=== PATIENT | male | born 1965 | race African-American/Black ===

== ENCOUNTER 2018-03-15 05:16 | Emergency (ER) | payer MEDICAID, MEDICARE ==
[2018-03-15] MEDS ORDERED: Ondansetron HCl/PF 4 MG/2 ML Vial ONE ×2 (05:52→05:58)
[2018-03-15] MEDS ORDERED: Morphine 4 MG/ML VIAL ONE ×2 (05:52→05:58)
[2018-03-15 06:19] LABS: Hemoglobin 12.7 g/dL (14.0-18.0); Mean Corpuscular HGB CONC 30.5 g/dL (32.0-36.0); Mean Corpuscular Hemoglobin 23.7 pg (27.0-31.0); Mean Corpuscular Volume 77.8 fL (78.0-98.0); Mean Platelet Volume 8.5 fL (7.4-10.4); Platelet Count 162 thou/uL (130-400); Red Blood Cell (RBC) Count 5.38 mill/uL (4.70-6.10); White Blood Cell (WBC) Count 4.9 thou/uL (4.8-10.8)
[2018-03-15 06:20] LABS: Manual Diff?? YES
[2018-03-15 06:22] LABS: MDiff Complete? YES
[2018-03-15 06:23] LABS: Anisocytosis SLIGHT = 6-15 cells (100X) (0-5/hpf); Eosinophils 2 % (0-10); Lymphocytes 46 % (21-51); Monocytes 10 % (0-10); Neutrophil 42 % (42-75); PLT Morphology Comment Appears Adequate
[2018-03-15 06:24] LABS: CKMB 2.1 ng/mL (0-6.6); Troponin I Less than 0.010 ng/mL (< 0.028)
[2018-03-15 06:27] LABS: ALT (SGPT) 44 U/L (8-55); AST (SGOT) 72 U/L (5-34); Albumin 3.5 g/dL (3.5-5.0); Alkaline Phosphatase 76 U/L (40-150); Anion Gap 15 mmol/L (10-20); BUN (Urea Nitrogen) 10 mg/dL (8.4-25.7); Bilirubin, Total 0.3 mg/dL (0.2-1.2); CK (CPK) 128 U/L (30-200); Calc. Creatinine Clearance 0 mL/min (70-130); Calcium 8.9 mg/dL (7.8-10.44); Carbon Dioxide 21 mmol/L (22-29); Chloride 109 mmol/L (98-107); Estimated GFR-MDRD Greater than 90; Globulin 3.1 g/dL (2.4-3.5); Glucose 90 mg/dL (70-105); Lipase 63 U/L (8-78); Potassium 4.2 mmol/L (3.5-5.1); Protein, Total 6.6 g/dL (6.0-8.3); Sodium 141 mmol/L (136-145)
[2018-03-15 06:35] LABS: Magnesium 2.1 mg/dL (1.6-2.6)
[2018-03-15] MEDS ORDERED: Nitroglycerin 2% Ointment 1 INCH/1 GM Packet ONE (06:41)
[2018-03-15 07:33] LABS: Bilirubin Negative (Negative); Blood, Urine Negative (Negative); Clarity Clear (Clear); Glucose, Urine (Dipstick) Negative (Negative); Leukocyte Negative (Negative); Nitrite Negative (Negative); Protein, Urine (Dipstick) Negative (Neg-Trace); Urobilinogen 0.2 mg/dL (0.2-1.0); pH, Urine 6.5 (5.0-9.0)
--- NOTE | 2018-03-15 07:50 | RAD ---
PORTABLE CHEST: HISTORY: Chest pain. FINDINGS: Lung torres are clear. Heart and mediastinum unremarkable. IMPRESSION: Negative chest. POS: [facility]
[2018-03-15 08:02] LABS: Amphetamine Not Detected (NotDetected); Barbiturates Screen Not Detected (NotDetected); Benzodiazepine Screen Not Detected (NotDetected); Cocaine Metabolite Screen Detected (NotDetected); Medtox Control Line Valid? VALID (VALID); Methadone Not Detected (NotDetected); Methamphetamine Not Detected (NotDetected); Opiate Screen Not Detected (NotDetected); Oxycodone Screen Not Detected (NotDetected); Phencyclidine (PCP) Not Detected (NotDetected); THC/Cannabinoid Screen Detected (NotDetected); Tricyclic Screen Not Detected (NotDetected)
[2018-03-15] MEDS ORDERED: Sodium Chloride 0.9% 1,000 ML BAG ONE (12:09)
== END 2018-03-15 07:15 | disposition home or self-care (01) ==
LOC: MADERS 05:16
DX: R07.9 Chest pain, unspecified (principal); R00.1 Bradycardia, unspecified; K02.9 Dental caries, unspecified; K03.81 Cracked tooth; M54.5 Low back pain; F20.9 Schizophrenia, unspecified; F17.210 Nicotine dependence, cigarettes, uncomplicated
CPT/HCPCS: 71045; 80053; 80306; 81003; 82553; 83690; 83735; 84443; 84484; 85025; 93005; 94760; 96361; 96374; 96375; J2270; J2405; J7050

== ENCOUNTER 2018-04-09 14:23 | Outpatient (CLI) | payer MEDICARE, OTHER ==
--- NOTE | 2018-04-09 16:28 | RAD ---
THORACIC SPINE 2 VIEWS: Date: 04/09/18 HISTORY: Back pain. FINDINGS: Twelve thoracic-type vertebrae. Pedicles intact. Superior margin of T1 is not included on the frontal view and is predominantly obscured by the shoulders on the lateral view. Vertebral body heights and alignment are maintained. No acute fracture or dislocation. IMPRESSION: No evidence of thoracic compression fracture. POS: [facility]
== END 2018-04-09 14:24 | disposition home or self-care (01) ==
LOC: MADRAD 14:23
PROVIDERS: ATTEND Family Medicine
DX: M54.6 Pain in thoracic spine (principal)
CPT/HCPCS: 72072

== ENCOUNTER 2018-07-12 15:26 | Emergency (ER) | payer MEDICAID, MEDICARE, OTHER ==
[2018-07-12] MEDS ORDERED: Lorazepam 2 MG/ML VIAL ONE (15:55)
[2018-07-12] MEDS ORDERED: HYDROmorphone 0.5 MG/0.5 ML SYRINGE ONE (15:56)
[2018-07-12 16:15] LABS: Bilirubin Negative (Negative); Blood, Urine Negative (Negative); Clarity Clear (Clear); Glucose, Urine (Dipstick) Negative (Negative); Leukocyte Negative (Negative); Nitrite Negative (Negative); Protein, Urine (Dipstick) 30 mg/dL (Neg-Trace); pH, Urine 8.5 (5.0-9.0)
[2018-07-12 16:17] LABS: RBC/HPF 0-3 HPF (0-3); Squamous Epithelial None Seen HPF (0-3)
[2018-07-12 16:17] LABS: #Basophils 0.2 thou/uL (0.0-0.2); #Eosinphils 0.1 thou/uL (0.0-0.7); #Lymphocytes 1.9 thou/uL (1.20-3.40); #Monocytes 0.6 thou/uL (0.11-0.59); %Basophils 2.1 % (0.0-1.0); %Eosinophils 0.7 % (0.0-10.0); %Monocytes 8.2 % (0.0-10.0); Hemoglobin 14.2 g/dL (14.0-18.0); MDiff Complete? YES; Mean Corpuscular HGB CONC 30.3 g/dL (32.0-36.0); Mean Corpuscular Hemoglobin 23.5 pg (27.0-31.0); Mean Corpuscular Volume 77.4 fL (78.0-98.0); Mean Platelet Volume 8.7 fL (7.4-10.4); Microcytosis SLIGHT = 6-15 cells (100X) (0-5/hpf); Platelet Count 162 thou/uL (130-400); Platelet Morphology Comment Appears Adequate; RBC Distribution Width 13.8 % (11.5-14.5); Red Blood Cell (RBC) Count 6.05 mill/uL (4.70-6.10); White Blood Cell (WBC) Count 7.7 thou/uL (4.8-10.8)
[2018-07-12 16:18] LABS: Bacteria/HPF Rare-Few HPF (None Seen); Transitional Epithelial 0-3 HPF (0-3)
[2018-07-12 16:21] LABS: ALT (SGPT) 42 U/L (8-55); AST (SGOT) 49 U/L (5-34); Alkaline Phosphatase 72 U/L (40-150); Anion Gap 14 mmol/L (10-20); BUN (Urea Nitrogen) 10 mg/dL (8.4-25.7); Bilirubin, Total 0.7 mg/dL (0.2-1.2); Calc. Creatinine Clearance 0 mL/min (70-130); Calcium 9.2 mg/dL (7.8-10.44); Carbon Dioxide 23 mmol/L (22-29); Chloride 104 mmol/L (98-107); Estimated GFR-MDRD Greater than 90; Globulin 3.7 g/dL (2.4-3.5); Glucose 74 mg/dL (70-105); Potassium 3.8 mmol/L (3.5-5.1); Protein, Total 7.7 g/dL (6.0-8.3); Sodium 137 mmol/L (136-145)
[2018-07-12 16:50] LABS: Lipase 124 U/L (8-78)
== END 2018-07-12 18:33 | disposition home or self-care (01) ==
LOC: MADERS 15:26
DX: M54.16 Radiculopathy, lumbar region (principal); F17.210 Nicotine dependence, cigarettes, uncomplicated
CPT/HCPCS: 36415; 80053; 81003; 81015; 83605; 83690; 85025; 96374; 96375; J1170; J2060

== ENCOUNTER 2018-09-24 09:25 | Emergency (ER) | payer OTHER ==
--- NOTE | 2018-09-24 09:54 | RAD ---
XR Elbow Rt 4 View STANDARD: 09/24/2018 9:40 AM CLINICAL INDICATION: Injury, pain COMPARISON: None. FINDINGS: Fracture:No fracture. Arthropathy:None of significance. Incidental findings:None of significance. IMPRESSION: 1. No acute osseous abnormality.
[2018-09-24] MEDS ORDERED: Bacitracin Zinc 1 Packet ONE (10:18)
== END 2018-09-24 10:40 | disposition home or self-care (01) ==
LOC: MADERS 09:25
DX: S41.111A Laceration without foreign body of right upper arm, initial encounter (principal); F17.210 Nicotine dependence, cigarettes, uncomplicated; F20.9 Schizophrenia, unspecified; Z79.899 Other long term (current) drug therapy; W45.8XXA Other foreign body or object entering through skin, initial encounter
CPT/HCPCS: 12002

== ENCOUNTER 2018-10-01 11:09 | Emergency (ER) | payer MEDICARE, OTHER | END 2018-10-01 11:35 | disposition home or self-care (01) | LOC: MADERS 11:09 | DX: S41.111D Laceration without foreign body of right upper arm, subsequent encounter (principal) ==

== ENCOUNTER 2019-10-09 06:43 | Emergency (ER) | payer MEDICARE, OTHER ==
[~2019-10-09 06:43] MED LIST: Iopamidol 370 76% 100 ML VIAL ONE
[2019-10-09 07:42] LABS: Bilirubin Negative (Negative); Blood, Urine Trace (Negative); Clarity Clear (Clear); Glucose, Urine (Dipstick) Negative (Negative); Leukocyte Negative (Negative); Nitrite Negative (Negative); Protein, Urine (Dipstick) Negative (Neg-Trace); Urobilinogen 0.2 mg/dL (Less than 2)
[2019-10-09 07:45] LABS: Bacteria/HPF Rare-Few HPF (None Seen); RBC/HPF 0-3 HPF (0-3); Squamous Epithelial 0-3 HPF (0-3); WBC/HPF 0-3 HPF (0-3)
[2019-10-09] MEDS ORDERED: Sodium Chloride 0.9% 1,000 ML ONE ×3 (07:53→10:49)
[2019-10-09] MEDS ORDERED: Ketorolac Tromethamine 30 MG/ML VIAL ONE (07:53)
[2019-10-09 08:11] LABS: #Basophils 0.1 thou/uL (0.0-0.2); #Eosinphils 0.2 thou/uL (0.0-0.7); #Lymphocytes 2.3 thou/uL (1.20-3.40); #Monocytes 0.3 thou/uL (0.11-0.59); #Neutrophils 3.1 thou/uL (1.40-6.50); %Basophils 1.3 % (0.0-1.0); %Eosinophils 2.8 % (0.0-10.0); %Lymphocytes 39.2 % (21.0-51.0); %Monocytes 4.8 % (0.0-10.0); Hemoglobin 16.4 g/dL (14.0-18.0); Mean Corpuscular HGB CONC 30.2 g/dL (32.0-36.0); Mean Corpuscular Hemoglobin 23.9 pg (27.0-31.0); Mean Corpuscular Volume 79.1 fL (78.0-98.0); Mean Platelet Volume 7.8 fL (7.4-10.4); Platelet Count 209 thou/uL (130-400); RBC Distribution Width 15.3 % (11.5-14.5); Red Blood Cell (RBC) Count 6.87 mill/uL (4.70-6.10)
[2019-10-09 08:12] LABS: ALT (SGPT) 36 U/L (8-55); AST (SGOT) 36 U/L (5-34); Albumin 4.4 g/dL (3.5-5.0); Alkaline Phosphatase 89 U/L (40-110); Anion Gap 15 mmol/L (10-20); BUN (Urea Nitrogen) 14 mg/dL (8.4-25.7); Bilirubin, Total 0.3 mg/dL (0.2-1.2); Calc. Creatinine Clearance 0 mL/min (70-130); Calcium 9.5 mg/dL (7.8-10.44); Carbon Dioxide 28 mmol/L (22-29); Chloride 104 mmol/L (98-107); Estimated GFR-MDRD 89; Globulin 3.7 g/dL (2.4-3.5); Glucose 61 mg/dL (70-105); Potassium 3.8 mmol/L (3.5-5.1); Protein, Total 8.1 g/dL (6.0-8.3); Sodium 143 mmol/L (136-145)
--- NOTE | 2019-10-09 09:40 | CT ---
CT ABDOMEN AND PELVIS WITH IV CONTRAST: INDICATION: Left inguinal and abdominal pain. COMPARISON: Comparison is made to a CT abdomen and pelvis 09/15/2019. FINDINGS: The lack of oral and enteric contrast severe limits this study. This patient has very little intraab dominal fat plane and separation of bowel loops is not possible. The prior exam was noted to be subo ptimal due to lack of oral enteric contrast. Lung bases appear clear. The visualized liver, spleen, and pancreas are unremarkable. Post cholecystectomy changes are noted. Adrenal glands appear normal. Kidneys showed no evidence of hydronephrosis. There are small nonobstructing calculi in the upper co llecting structures of both kidneys. There is a probable 2-3 mm calculus upper pole right kidney and a 3 mm calculus lower pole left kidney. No hydronephrosis or renal mass lesion. Urinary bladder is mildly distended. The prostate is enlarged. Small bowel loops appear normal caliber. There is stool and gas throughout the colon. The appendix is not identified. No evidence of free fluid or free intraperitoneal air. There is no definite soft tissue mass identified. Osseous structures are unremarkable. IMPRESSION: Evaluation of bowel and abdominal structures is limited in this patient without oral enteric contrast . There is prostatic hypertrophy and mild urinary bladder distention. No acute process identified. POS: [facility]
[2019-10-09 10:09] LABS: Amphetamine Detected (NotDetected); Barbiturates Screen Not Detected (NotDetected); Benzodiazepine Screen Not Detected (NotDetected); Cocaine Metabolite Screen Detected (NotDetected); Medtox Control Line Valid? VALID (VALID); Methadone Not Detected (NotDetected); Methamphetamine Not Detected (NotDetected); Opiate Screen Not Detected (NotDetected); Oxycodone Screen Not Detected (NotDetected); Phencyclidine (PCP) Not Detected (NotDetected); THC/Cannabinoid Screen Not Detected (NotDetected); Tricyclic Screen Not Detected (NotDetected)
[2019-10-09 10:16] LABS: Acetaminophen Less than 6.0 mcg/mL (10.0-30.0); Alcohol Less than 10 mg/dL (Less than 10); Salicylate Less than 8.0 mg/dL (15.0-30.0)
--- NOTE | 2019-10-09 11:52 | CT ---
CT ABDOMEN WITH CONTRAST CT PELVIS WITH CONTRAST: DATE: 10/09/2019 TIME: 11:06 a.m. HISTORY: 53-year-old male with persistent left lower quadrant abdominal pain. COMPARISON: CT with IV contrast on same day, without oral contrast, at 8:22 a.m.. TECHNIQUE: IV injection of iodinated contrast media: Administered. Oral contrast media: Administered. FINDINGS: Oral contrast material has reached the cecum, but not beyond that. The cecum is located to the left o f midline in the mid-upper abdomen. The appendix is filled with oral contrast material and gas; there is no appendicitis. There is a large volume of stool and a large volume of gas in the colon. There i s some gaseous distention of the cecum and transverse colon. No evidence of mural or fold thickening of the colon. The lack of visceral fat makes it somewhat difficult to evaluate some portions of the c olon that are not filled with air, such as the proximal sigmoid colon, which is collapsed. The mid an d distal sigmoid colon, and descending colon do not appear to be involved by colitis or diverticuliti s. No small bowel dilation. No ascites identified. Urinary bladder is now distended, filled with IV cont rast material from previous CT, and has normal, thin nunez. Kidneys, adrenals, and spleen are normal. No solid or cystic hepatic mass. No portal vein thrombosis. Cholecystectomy clips. Diffuse mild to m oderate dilation of entire biliary tree, including extrahepatic and intrahepatic portions, unchanged since 09/15/2019. Diffuse mild dilation of pancreatic duct, which was also present previously. No con vincing evidence of acute pancreatitis. No abdominal aortic aneurysm. No small bowel dilation. No def inite pneumoperitoneum identified, although lack of visceral fat decreases the sensitivity. IMPRESSION: 1. Evidence for constipation: large volume of colonic gas and stool. 2. Normal appendix. 3. No compelling evidence of acute pathology. 4. Dilation of the biliary tree is probably due to the status post cholecystectomy. 5. Mild dilation of entire pancreatic duct. Serial follow up CT's with contrast recommended, beginn ing in 6 months. JENNA POS: [facility]
== END 2019-10-09 12:04 | disposition home or self-care (01) ==
LOC: MADERS 06:43
DX: R10.32 Left lower quadrant pain (principal); F31.9 Bipolar disorder, unspecified; F20.9 Schizophrenia, unspecified; F17.210 Nicotine dependence, cigarettes, uncomplicated
CPT/HCPCS: 36416; 74177; 80053; 80306; 80307; 81003; 81015; 83605; 83690; 85025; 96361; 96374; J1885; J7050; Q9967

== ENCOUNTER 2019-10-14 09:18 | Emergency (ER) | payer MEDICARE, OTHER | END 2019-10-14 10:10 | disposition home or self-care (01) | LOC: MADERS 09:18 | DX: K62.89 Other specified diseases of anus and rectum (principal); F31.9 Bipolar disorder, unspecified; F20.9 Schizophrenia, unspecified; F17.210 Nicotine dependence, cigarettes, uncomplicated; Z79.899 Other long term (current) drug therapy | CPT/HCPCS: 99283 ==

== ENCOUNTER 2019-11-08 12:56 | Emergency (ER) | payer MEDICARE, OTHER | END 2019-11-08 13:33 | disposition home or self-care (01) | LOC: MADERS 12:56 | DX: F14.10 Cocaine abuse, uncomplicated (principal); F17.210 Nicotine dependence, cigarettes, uncomplicated; F31.9 Bipolar disorder, unspecified; F20.9 Schizophrenia, unspecified | CPT/HCPCS: 99284 ==

== ENCOUNTER 2019-12-08 11:50 | Emergency (ER) | payer MEDICARE, OTHER ==
[2019-12-08 12:30] LABS: Bilirubin Small (Negative); Blood, Urine Moderate (Negative); Glucose, Urine (Dipstick) Negative (Negative); Ketone, Urine Negative (Negative); Leukocyte Negative (Negative); Nitrite Negative (Negative); Protein, Urine (Dipstick) 100 mg/dL (Neg-Trace); pH, Urine 5.5 (5.0-9.0)
[2019-12-08 12:40] LABS: Amphetamine Detected (NotDetected); Cocaine Metabolite Screen Detected (NotDetected); Methamphetamine Detected (NotDetected); Opiate Screen Not Detected (NotDetected); Phencyclidine (PCP) Not Detected (NotDetected); THC/Cannabinoid Screen Not Detected (NotDetected)
[2019-12-08 12:41] LABS: Barbiturates Screen Not Detected (NotDetected); Benzodiazepine Screen Not Detected (NotDetected); Medtox Control Line Valid? VALID (VALID); Methadone Not Detected (NotDetected); Oxycodone Screen Not Detected (NotDetected); Tricyclic Screen Not Detected (NotDetected)
[2019-12-08 12:43] LABS: Clarity Hazy (Clear); Specific Gravity, Urine 1.029 (1.002-1.036)
[2019-12-08 12:50] LABS: #Basophils 0.1 thou/uL (0.0-0.2); #Eosinphils 0.1 thou/uL (0.0-0.7); #Lymphocytes 2.6 thou/uL (1.20-3.40); #Monocytes 0.4 thou/uL (0.11-0.59); #Neutrophils 2.4 thou/uL (1.40-6.50); %Basophils 1.4 % (0.0-1.0); %Eosinophils 1.5 % (0.0-10.0); %Lymphocytes 46.1 % (21.0-51.0); %Monocytes 7.4 % (0.0-10.0); %Neutrophils 43.6 % (42.0-75.0); Hemoglobin 13.7 g/dL (14.0-18.0); Mean Corpuscular HGB CONC 29.6 g/dL (32.0-36.0); Mean Corpuscular Hemoglobin 23.3 pg (27.0-31.0); Mean Corpuscular Volume 78.8 fL (78.0-98.0); Mean Platelet Volume 7.5 fL (7.4-10.4); Platelet Count 225 thou/uL (130-400); RBC Distribution Width 15.2 % (11.5-14.5); White Blood Cell (WBC) Count 5.6 thou/uL (4.8-10.8)
[2019-12-08 12:54] LABS: RBC/HPF 21-50 HPF (0-3)
[2019-12-08 12:55] LABS: Bacteria/HPF Rare-Few HPF (None Seen); Mucous/LPF 2+ LPF (<2+); Sperm/HPF 1+ HPF (None Seen)
[2019-12-08 13:03] LABS: ALT (SGPT) 40 U/L (8-55); AST (SGOT) 43 U/L (5-34); Acetaminophen Less than 6.0 mcg/mL (10.0-30.0); Alcohol Less than 10 mg/dL (Less than 10); Alkaline Phosphatase 92 U/L (40-110); Anion Gap 15 mmol/L (10-20); BUN (Urea Nitrogen) 14 mg/dL (8.4-25.7); Bilirubin, Total 0.5 mg/dL (0.2-1.2); CK (CPK) 186 U/L (30-200); Calc. Creatinine Clearance 0 mL/min (70-130); Calcium 9.8 mg/dL (7.8-10.44); Carbon Dioxide 25 mmol/L (22-29); Chloride 106 mmol/L (98-107); Estimated GFR-MDRD 77; Globulin 3.5 g/dL (2.4-3.5); Glucose 77 mg/dL (70-105); Potassium 4.1 mmol/L (3.5-5.1); Protein, Total 7.5 g/dL (6.0-8.3); Salicylate Less than 8.0 mg/dL (15.0-30.0); Sodium 142 mmol/L (136-145)
--- NOTE | 2019-12-08 14:17 | RAD ---
PORTABLE CHEST: Date: 12-08-2019 Provided Clinical History: Altered mental status. FINDINGS: Comparison 09-15-2019. Cardiac and mediastinal silhouette is within normal limits. No focal consolidation, pleural fluid or pneumothorax apparent. IMPRESSION: No evidence for an acute cardiopulmonary process. POS: [facility]
== END 2019-12-08 17:48 ==
LOC: MADERS 11:50
DX: F20.0 Paranoid schizophrenia (principal); F31.9 Bipolar disorder, unspecified; F17.210 Nicotine dependence, cigarettes, uncomplicated; F14.10 Cocaine abuse, uncomplicated; F15.10 Other stimulant abuse, uncomplicated; E05.90 Thyrotoxicosis, unspecified without thyrotoxic crisis or storm
CPT/HCPCS: 36415; 71045; 80053; 80306; 80307; 81003; 81015; 82550; 84443; 85025

== ENCOUNTER 2019-12-30 23:21 | Emergency (ER) | payer MEDICARE, MEDICAID ==
[~2019-12-30 23:21] MED LIST changes: +Dextrose 5 %-0.45 % NaCl 1000 ml Bag ONE
[2019-12-31] MEDS ORDERED: Sodium Chloride 0.9% 1,000 ML ONE ×3 (00:02→04:58)
[2019-12-31 00:17] LABS: Hemoglobin 13.9 g/dL (14.0-18.0); Mean Corpuscular HGB CONC 30.6 g/dL (32.0-36.0); Mean Corpuscular Volume 78.3 fL (78.0-98.0); Mean Platelet Volume 7.4 fL (7.4-10.4); Platelet Count 216 thou/uL (130-400); RBC Distribution Width 14.6 % (11.5-14.5); White Blood Cell (WBC) Count 8.9 thou/uL (4.8-10.8)
[2019-12-31 00:25] LABS: #Basophils 0.1 thou/uL (0.0-0.2); #Eosinphils 0.1 thou/uL (0.0-0.7); #Lymphocytes 3.4 thou/uL (1.20-3.40); #Monocytes 0.5 thou/uL (0.11-0.59); #Neutrophils 4.8 thou/uL (1.40-6.50); %Basophils 1.4 % (0.0-1.0); %Eosinophils 1.3 % (0.0-10.0); %Lymphocytes 37.8 % (21.0-51.0); %Monocytes 5.5 % (0.0-10.0); %Neutrophils 54.1 % (42.0-75.0); Hypochromia SLIGHT = 6-15 cells (100X) (0-5/hpf); MDiff Complete? YES; Microcytosis SLIGHT = 6-15 cells (100X) (0-5/hpf); Platelet Morphology Comment Appears Adequate; Target Cells SLIGHT = 2-5 cells (100X) (0-1/hpf)
[2019-12-31 00:30] LABS: ALT (SGPT) 110 U/L (8-55); AST (SGOT) 203 U/L (5-34); Albumin 4.3 g/dL (3.5-5.0); Alkaline Phosphatase 87 U/L (40-110); Anion Gap 20 mmol/L (10-20); BUN (Urea Nitrogen) 25 mg/dL (8.4-25.7); Bilirubin, Total 0.8 mg/dL (0.2-1.2); CK (CPK) 392 U/L (30-200); Calc. Creatinine Clearance 0 mL/min (70-130); Calcium 8.8 mg/dL (7.8-10.44); Carbon Dioxide 21 mmol/L (22-29); Chloride 103 mmol/L (98-107); Estimated GFR-MDRD 62; Globulin 3.6 g/dL (2.4-3.5); Glucose 101 mg/dL (70-105); Potassium 5.8 mmol/L (3.5-5.1); Protein, Total 7.9 g/dL (6.0-8.3); Sodium 138 mmol/L (136-145)
[2019-12-31 00:59] LABS: Bilirubin Negative (Negative); Blood, Urine Moderate (Negative); Clarity Clear (Clear); Glucose, Urine (Dipstick) Negative (Negative); Ketone, Urine Negative (Negative); Leukocyte Negative (Negative); Nitrite Negative (Negative); Protein, Urine (Dipstick) Negative (Neg-Trace); pH, Urine 5.5 (5.0-9.0)
[2019-12-31 01:00] LABS: Specific Gravity, Urine 1.026 (1.002-1.036)
[2019-12-31 01:04] LABS: Bacteria/HPF None Seen HPF (None Seen); Mucous/LPF None Seen LPF (<2+); RBC/HPF None Seen HPF (0-3); Squamous Epithelial None Seen HPF (0-3)
[2019-12-31 01:10] LABS: Amphetamine Detected (NotDetected); Barbiturates Screen Not Detected (NotDetected); Benzodiazepine Screen Not Detected (NotDetected); Cocaine Metabolite Screen Not Detected (NotDetected); Medtox Control Line Valid? VALID (VALID); Methadone Not Detected (NotDetected); Methamphetamine Detected (NotDetected); Opiate Screen Not Detected (NotDetected); Oxycodone Screen Not Detected (NotDetected); Phencyclidine (PCP) Not Detected (NotDetected); THC/Cannabinoid Screen Not Detected (NotDetected); Tricyclic Screen Not Detected (NotDetected)
[2019-12-31] MEDS ORDERED: Famotidine In NaCl 20 mg/50 ml Premix Bag ONE (02:00)
[2019-12-31 04:17] LABS: Chloride 111 mmol/L (98-107); Potassium 3.9 mmol/L (3.5-5.1); Sodium 141 mmol/L (136-145)
[2019-12-31 04:18] LABS: BUN (Urea Nitrogen) 22 mg/dL (8.4-25.7); Calc. Creatinine Clearance 0 mL/min (70-130); Carbon Dioxide 18 mmol/L (22-29); Estimated GFR-MDRD 83
[2019-12-31 04:19] LABS: Calcium 7.6 mg/dL (7.8-10.44); Glucose 57 mg/dL (70-105)
[2019-12-31 04:22] LABS: Anion Gap 16 mmol/L (10-20)
[2019-12-31] MEDS ORDERED: Calcium Carbonate 500 MG ChewTAB ONE (05:05)
[2019-12-31] MEDS ORDERED: cefTRIAXone\\ROCEPHIN 1 GM VIAL ONE (05:09)
[2019-12-31] MEDS ORDERED: Sodium Chloride 0.9% 100 ML ONE (05:09)
[2019-12-31] MEDS ORDERED: D5 1/4 NS 1,000 ML ONE (05:26)
[2019-12-31] MEDS ORDERED: Thiamine HCl 200 MG/2 ML VIAL ONE (05:26)
[2019-12-31] MEDS ORDERED: Multivit, Adult Inj 10 ML VIAL ONE (05:26)
--- NOTE | 2019-12-31 07:12 | CT ---
PRELIMINARY REPORT/[facility]/EMERGENCY AFTER HOURS PROCEDURE: EXAM: CT Head Without Intravenous Contrast. CLINICAL HISTORY: Weakness, syncope workup TECHNIQUE: Axial computed tomography images of the head/brain without intravenous contrast. COMPARISON: None provided. FINDINGS: BRAIN: Right paracentral carvalho radiata hypodensity may represent chronic infarct. Correlate clinically or c onsider follow up. VENTRICLES: No hydrocephalus. ORBITS: The orbits are unremarkable. SINUSES AND MASTOIDS: Mild sinus mucosal disease. SOFT TISSUES: No significant facial or scalp soft tissue swelling evident. No radiopaque foreign body is seen. BONES: No acute skull fracture. IMPRESSION: Right paracentral carvalho radiata hypodensity may represent chronic infarct. Correlate clinically or c onsider follow up. ELECTRONICALLY SIGNED BY: Varghese Bhagat MD Dec 31, 2019 1:27:50 AM CDT This report is intended for review by the ordering physician only, in accordance of law. If you recei ve this report in error, please call [facility] at [phone]. FINAL REPORT EMERGENCY AFTER HOURS CT BRAIN WITHOUT CONTRAST: FINDINGS/IMPRESSION: I agree with the findings and impression given in the preliminary report per [facility] physici an. 1. No evidence of acute intracranial abnormality. 2. The hypodensity mentioned along the carvalho radiata may represent a chronic infarction. Alternativ mariaa, this could represent fat along the corpus callosum. POS: [facility]
[2019-12-31 07:57] LABS: Anion Gap 12 mmol/L (10-20); BUN (Urea Nitrogen) 21 mg/dL (8.4-25.7); Calc. Creatinine Clearance 0 mL/min (70-130); Calcium 7.5 mg/dL (7.8-10.44); Carbon Dioxide 23 mmol/L (22-29); Chloride 109 mmol/L (98-107); Estimated GFR-MDRD 86; Glucose 72 mg/dL (70-105); Potassium 3.9 mmol/L (3.5-5.1); Sodium 140 mmol/L (136-145)
--- NOTE | 2019-12-31 07:58 | CT ---
CT ABDOMEN AND PELVIS WITH CONTRAST: COMPARISON: 10/09/2019. HISTORY: Abdominal pain. TECHNIQUE: Multiple contiguous axial images were obtained in a CT of the abdomen and pelvis with contrast. P.o. contrast was administered. Sagittal and coronal reformats were performed. FINDINGS: The patient is status post cholecystectomy. There appears to be a small amount of periportal edema w hich is nonspecific. No focal liver lesions are seen. There is a nonobstructing 5 mm calcification in the left kidney. The right kidney, adrenal glands, spleen, and pancreas are unremarkable. No free air, free fluid, or stranding changes are seen in the abdomen or pelvis. The large and small bowel are unremarkable. The appendix is normal. No abdominal or pelvic lymphadenopathy are seen. Atherosclerotic calcifications are seen in the aorta. Mild degenerative changes are seen in the spine. The abdominal wall soft tissues are unremarkable. Calcified granulomas were seen in the left lung base. IMPRESSION: Nonspecific periportal edema in the liver. Otherwise, unremarkable exam. POS: [facility]
== END 2019-12-31 08:25 | disposition home or self-care (01) ==
LOC: MADERS 23:21
DX: F10.20 Alcohol dependence, uncomplicated (principal); F15.10 Other stimulant abuse, uncomplicated; E86.0 Dehydration; R55 Syncope and collapse; E83.51 Hypocalcemia; Z71.6 Tobacco abuse counseling
CPT/HCPCS: 36416; 70450; 74177; 80053; 80306; 81003; 81015; 82550; 83605; 83690; 84484; 85025; 87086; 93005; 96361; 96365; 96366; 96367; 99406; J0696; J3411; J3490; J7042; J7050; Q9967

== ENCOUNTER 2020-01-05 11:50 | Emergency (ER) | payer MEDICARE, OTHER ==
[~2020-01-05 11:50] MED LIST changes: -Dextrose 5 %-0.45 % NaCl 1000 ml Bag ONE; -Iopamidol 370 76% 100 ML VIAL ONE; +Sodium Chloride 0.9% 1,000 ML BAG ONE
--- NOTE | 2020-01-05 12:43 | RAD ---
PORTABLE CHEST: Date: 01/05/2020 PROVIDED CLINICAL HISTORY: Cough. FINDINGS: Comparison with 12/08/2019. Cardiac and mediastinal silhouette is within normal limits. No focal consolidation, pleural fluid, or pneumothorax. IMPRESSION: No evidence for an acute cardiopulmonary process. POS: [facility]
[2020-01-05 12:57] LABS: #Basophils 0.1 thou/uL (0.0-0.2); #Eosinphils 0.1 thou/uL (0.0-0.7); #Lymphocytes 2.3 thou/uL (1.20-3.40); #Monocytes 0.4 thou/uL (0.11-0.59); #Neutrophils 2.7 thou/uL (1.40-6.50); %Basophils 1.4 % (0.0-1.0); %Eosinophils 1.8 % (0.0-10.0); %Lymphocytes 40.9 % (21.0-51.0); %Monocytes 7.2 % (0.0-10.0); %Neutrophils 48.7 % (42.0-75.0); Hemoglobin 12.3 g/dL (14.0-18.0); Hypochromia SLIGHT = 6-15 cells (100X) (0-5/hpf); MDiff Complete? YES; Mean Corpuscular HGB CONC 30.1 g/dL (32.0-36.0); Mean Corpuscular Hemoglobin 23.7 pg (27.0-31.0); Mean Corpuscular Volume 78.6 fL (78.0-98.0); Mean Platelet Volume 7.4 fL (7.4-10.4); Platelet Count 185 thou/uL (130-400); RBC Distribution Width 14.7 % (11.5-14.5); Red Blood Cell (RBC) Count 5.21 mill/uL (4.70-6.10); White Blood Cell (WBC) Count 5.5 thou/uL (4.8-10.8)
[2020-01-05 12:58] LABS: ALT (SGPT) 66 U/L (8-55); AST (SGOT) 66 U/L (5-34); Alcohol Less than 10 mg/dL (Less than 10); Alkaline Phosphatase 98 U/L (40-110); Anion Gap 17 mmol/L (10-20); BUN (Urea Nitrogen) 19 mg/dL (8.4-25.7); Bilirubin, Total 0.5 mg/dL (0.2-1.2); CK (CPK) 445 U/L (30-200); Calc. Creatinine Clearance 0 mL/min (70-130); Calcium 8.6 mg/dL (7.8-10.44); Carbon Dioxide 21 mmol/L (22-29); Chloride 108 mmol/L (98-107); Estimated GFR-MDRD 70; Globulin 2.9 g/dL (2.4-3.5); Glucose 181 mg/dL (70-105); Potassium 3.4 mmol/L (3.5-5.1); Protein, Total 6.9 g/dL (6.0-8.3); Sodium 143 mmol/L (136-145)
[2020-01-05 12:59] LABS: Amphetamine Detected (NotDetected); Barbiturates Screen Not Detected (NotDetected); Benzodiazepine Screen Detected (NotDetected); Cocaine Metabolite Screen Detected (NotDetected); Medtox Control Line Valid? VALID (VALID); Methadone Not Detected (NotDetected); Methamphetamine Detected (NotDetected); Opiate Screen Not Detected (NotDetected); Oxycodone Screen Not Detected (NotDetected); Phencyclidine (PCP) Not Detected (NotDetected); THC/Cannabinoid Screen Detected (NotDetected); Tricyclic Screen Not Detected (NotDetected)
[2020-01-05 13:11] LABS: Bilirubin Small (Negative); Blood, Urine Large (Negative); Glucose, Urine (Dipstick) Negative (Negative); Ketone, Urine Negative (Negative); Leukocyte Negative (Negative); Nitrite Negative (Negative); Protein, Urine (Dipstick) 30 mg/dL (Neg-Trace); pH, Urine 5.5 (5.0-9.0)
[2020-01-05 13:13] LABS: Clarity Hazy (Clear); Specific Gravity, Urine 1.028 (1.002-1.036)
[2020-01-05 13:16] LABS: RBC/HPF Greater than 50 HPF (0-3)
[2020-01-05 13:18] LABS: Bacteria/HPF Rare-Few HPF (None Seen); Sperm/HPF Rare HPF (None Seen); Squamous Epithelial 0-3 HPF (0-3)
[2020-01-05 13:19] LABS: Mucous/LPF 2+ LPF (<2+)
[2020-01-05] MEDS ORDERED: cefTRIAXone\\ROCEPHIN 1 GM VIAL ONE (13:40)
[2020-01-05] MEDS ORDERED: Sodium Chloride 0.9% 100 ML ONE (13:40)
[2020-01-05] MEDS ORDERED: Lorazepam 2 MG/ML VIAL ONE (18:26)
[2020-01-05] MEDS ORDERED: Sodium Chloride 0.9% 1,000 ML ONE (18:56)
== END 2020-01-05 21:00 ==
LOC: MADERS 11:50
DX: F14.10 Cocaine abuse, uncomplicated (principal); F12.10 Cannabis abuse, uncomplicated; F13.10 Sedative, hypnotic or anxiolytic abuse, uncomplicated; F15.10 Other stimulant abuse, uncomplicated; F29 Unspecified psychosis not due to a substance or known physiological condition; E86.0 Dehydration; N39.0 Urinary tract infection, site not specified; R45.851 Suicidal ideations; F20.9 Schizophrenia, unspecified; F31.9 Bipolar disorder, unspecified; F17.210 Nicotine dependence, cigarettes, uncomplicated
CPT/HCPCS: 36415; 71045; 80053; 80306; 80307; 81003; 81015; 82550; 84443; 85025; 96361; 96365; 96375; J0696; J2060; J3490; J7050

== ENCOUNTER 2020-02-04 03:15 | Emergency (ER) | payer MEDICARE, OTHER ==
[2020-02-04 04:03] LABS: #Basophils 0.1 thou/uL (0.0-0.2); #Eosinphils 0.1 thou/uL (0.0-0.7); #Lymphocytes 1.3 thou/uL (1.20-3.40); #Monocytes 0.4 thou/uL (0.11-0.59); #Neutrophils 2.9 thou/uL (1.40-6.50); %Basophils 2.3 % (0.0-1.0); %Eosinophils 1.1 % (0.0-10.0); %Lymphocytes 27.4 % (21.0-51.0); %Monocytes 8.2 % (0.0-10.0); Hemoglobin 13.1 g/dL (14.0-18.0); Mean Corpuscular HGB CONC 31.2 g/dL (32.0-36.0); Mean Corpuscular Hemoglobin 24.2 pg (27.0-31.0); Mean Corpuscular Volume 77.5 fL (78.0-98.0); Mean Platelet Volume 7.1 fL (7.4-10.4); Platelet Count 193 thou/uL (130-400); RBC Distribution Width 13.8 % (11.5-14.5); Red Blood Cell (RBC) Count 5.44 mill/uL (4.70-6.10); White Blood Cell (WBC) Count 4.8 thou/uL (4.8-10.8)
[2020-02-04 04:09] LABS: ALT (SGPT) 44 U/L (8-55); AST (SGOT) 50 U/L (5-34); Albumin 4.2 g/dL (3.5-5.0); Alkaline Phosphatase 78 U/L (40-110); Anion Gap 23 mmol/L (10-20); BUN (Urea Nitrogen) 16 mg/dL (8.4-25.7); Bilirubin, Total 0.6 mg/dL (0.2-1.2); Calc. Creatinine Clearance 0 mL/min (70-130); Calcium 9.6 mg/dL (7.8-10.44); Carbon Dioxide 21 mmol/L (22-29); Chloride 101 mmol/L (98-107); Estimated GFR-MDRD 68; Globulin 3.3 g/dL (2.4-3.5); Glucose 105 mg/dL (70-105); Potassium 3.5 mmol/L (3.5-5.1); Protein, Total 7.5 g/dL (6.0-8.3); Sodium 141 mmol/L (136-145)
[2020-02-04 04:10] LABS: Acetaminophen Less than 6.0 mcg/mL (10.0-30.0); Alcohol Less than 10 mg/dL (Less than 10); Salicylate Less than 8.0 mg/dL (15.0-30.0)
[2020-02-04 04:20] LABS: Target Cells SLIGHT = 2-5 cells (100X) (0-1/hpf)
[2020-02-04 04:28] LABS: Amphetamine Detected (NotDetected); Barbiturates Screen Not Detected (NotDetected); Benzodiazepine Screen Not Detected (NotDetected); Cocaine Metabolite Screen Not Detected (NotDetected); Medtox Control Line Valid? VALID (VALID); Methadone Not Detected (NotDetected); Methamphetamine Detected (NotDetected); Opiate Screen Not Detected (NotDetected); Oxycodone Screen Not Detected (NotDetected); Phencyclidine (PCP) Not Detected (NotDetected); THC/Cannabinoid Screen Detected (NotDetected); Tricyclic Screen Not Detected (NotDetected)
[2020-02-04 04:34] LABS: Bilirubin Negative (Negative); Blood, Urine Moderate (Negative); Glucose, Urine (Dipstick) Negative (Negative); Ketone, Urine Negative (Negative); Leukocyte Negative (Negative); Nitrite Negative (Negative); Protein, Urine (Dipstick) 100 mg/dL (Neg-Trace); pH, Urine 5.5 (5.0-9.0)
[2020-02-04 04:40] LABS: Specific Gravity, Urine 1.021 (1.002-1.036)
[2020-02-04 04:41] LABS: Clarity Hazy (Clear)
[2020-02-04 04:43] LABS: Bacteria/HPF Rare-Few HPF (None Seen); Mucous/LPF 1+ LPF (<2+); RBC/HPF 21-50 HPF (0-3); Sperm/HPF 1+ HPF (None Seen); Squamous Epithelial 0-3 HPF (0-3); WBC/HPF 0-3 HPF (0-3)
== END 2020-02-04 14:21 | disposition home or self-care (01) ==
LOC: MADERS 03:15
DX: F15.10 Other stimulant abuse, uncomplicated (principal); F32.9 Major depressive disorder, single episode, unspecified; F20.9 Schizophrenia, unspecified; F17.210 Nicotine dependence, cigarettes, uncomplicated
CPT/HCPCS: 36415; 80053; 80306; 80307; 81003; 81015; 85025; 99284

== ENCOUNTER 2020-02-25 07:51 | Emergency (ER) | payer MEDICARE, OTHER ==
[2020-02-25] MEDS ORDERED: Sodium Chloride 0.9% 1,000 ML ONE (08:00)
[2020-02-25] MEDS ORDERED: Ketorolac Tromethamine 30 MG/ML VIAL ONE (08:00)
[2020-02-25] MEDS ORDERED: Morphine 4 MG/ML VIAL ONE (08:33)
[2020-02-25 08:40] LABS: Bilirubin Negative (Negative); Blood, Urine Trace (Negative); Clarity Slightly Cloudy (Clear); Glucose, Urine (Dipstick) Negative (Negative); Ketone, Urine Negative (Negative); Leukocyte Negative (Negative); Nitrite Negative (Negative); Protein, Urine (Dipstick) Negative (Neg-Trace); Specific Gravity, Urine 1.026 (1.002-1.036)
[2020-02-25 08:42] LABS: Bacteria/HPF Rare-Few HPF (None Seen); RBC/HPF 0-3 HPF (0-3); Squamous Epithelial 0-3 HPF (0-3); WBC/HPF 0-3 HPF (0-3)
[2020-02-25 08:43] LABS: Amphetamine Detected (NotDetected); Barbiturates Screen Not Detected (NotDetected); Benzodiazepine Screen Not Detected (NotDetected); Cocaine Metabolite Screen Not Detected (NotDetected); Medtox Control Line Valid? VALID (VALID); Methadone Not Detected (NotDetected); Methamphetamine Detected (NotDetected); Opiate Screen Detected (NotDetected); Oxycodone Screen Not Detected (NotDetected); Phencyclidine (PCP) Not Detected (NotDetected); THC/Cannabinoid Screen Detected (NotDetected); Tricyclic Screen Not Detected (NotDetected)
[2020-02-25 08:48] LABS: Hemoglobin 13.7 g/dL (14.0-18.0); Mean Corpuscular HGB CONC 31.1 g/dL (32.0-36.0); Mean Corpuscular Hemoglobin 24.1 pg (27.0-31.0); Mean Corpuscular Volume 77.5 fL (78.0-98.0); Mean Platelet Volume 7.4 fL (7.4-10.4); Platelet Count 196 thou/uL (130-400); RBC Distribution Width 13.3 % (11.5-14.5); Red Blood Cell (RBC) Count 5.69 mill/uL (4.70-6.10); White Blood Cell (WBC) Count 4.6 thou/uL (4.8-10.8)
[2020-02-25 08:51] LABS: ALT (SGPT) 63 U/L (8-55); AST (SGOT) 50 U/L (5-34); Alkaline Phosphatase 94 U/L (40-110); Anion Gap 15 mmol/L (10-20); BUN (Urea Nitrogen) 17 mg/dL (8.4-25.7); Bilirubin, Total 0.4 mg/dL (0.2-1.2); Calc. Creatinine Clearance 0 mL/min (70-130); Calcium 9.1 mg/dL (7.8-10.44); Carbon Dioxide 27 mmol/L (22-29); Chloride 104 mmol/L (98-107); Estimated GFR-MDRD 87; Glucose 83 mg/dL (70-105); Potassium 3.8 mmol/L (3.5-5.1); Sodium 142 mmol/L (136-145)
[2020-02-25 08:55] LABS: MDiff Complete? YES; Manual Diff?? YES
[2020-02-25 08:56] LABS: Anisocytosis SLIGHT = 6-15 cells (100X) (0-5/hpf); Eosinophils 2 % (0-10); Lymphocytes 52 % (21-51); Monocytes 4 % (0-10); Neutrophil 40 % (42-75); Platelet Morphology Comment Appears Adequate; Poikilocytosis SLIGHT = 6-15 cells (100X) (0-5/hpf)
--- NOTE | 2020-02-25 09:01 | CT ---
Exam: Abdomen CT without contrast Pelvic CT without contrast HISTORY: Generalized abdominal pain. History of renal calculi. COMPARISON: 12/31/2019 FINDINGS: Abdomen CT: Lung bases:Costophrenic granulomas in the left lower lobe Heart size: Normal heart size. No significant pericardial effusion Aorta: Normal caliber. No periaortic fat stranding Solid organs: Limited evaluation by the lack of IV contrast. Grossly no solid organ abnormality Lymph nodes: No gastrohepatic, retrocrural or periportal lymphadenopathy Gallbladder: Surgically absent. Mesentery: Limited evaluation due to decreased visceral fat. No mesenteric mass, adenopathy, free air or free fluid. Kidneys: Nonobstructing calculus in the lower pole of the left kidney measures 0.3 cm. Nonobstructing calculus in the upper pole the right kidney measures 0.2 cm. Bilaterally no hydronephrosis or perinephric fat stranding. Limited evaluation of the left and right ureter. No obvious hydroureter, p eriureteral fat stranding or ureterolithiasis. Alimentary canal: Limited evaluation by the lack of oral contrast. No evidence of a high-grade small bowel obstruction. Colon appears to be decompressed with scattered fecal material. Limited evaluation of the appendix. No obvious inflammatory change at the cecal apex. Additional findings: There is markedly prominence of the IVC and common iliac veins CT PELVIS: No mass, adenopathy, free air or free fluid. Urinary bladder: Decompressed, limiting evaluation. Osseous structures: No lytic or blastic lesions IMPRESSION: Bilateral nonobstructing intrarenal calculi. Bilaterally no obstructive uropathy.
== END 2020-02-25 12:45 | disposition home or self-care (01) ==
LOC: MADERS 07:51
DX: R10.32 Left lower quadrant pain (principal); F31.9 Bipolar disorder, unspecified; F20.9 Schizophrenia, unspecified; F17.210 Nicotine dependence, cigarettes, uncomplicated
CPT/HCPCS: 74176; 80053; 80306; 81003; 81015; 85025; 96374; 96375; J1885; J2270; J7050

== ENCOUNTER 2020-03-15 22:28 | Emergency (ER) | payer MEDICARE, OTHER ==
[2020-03-15] MEDS ORDERED: Ondansetron PF 4 MG/2 ML Vial ONE (23:17)
[2020-03-15] MEDS ORDERED: Sodium Chloride 0.9% 1,000 ML ONE (23:17)
[2020-03-15 23:19] LABS: Hemoglobin 12.4 g/dL (14.0-18.0); Mean Corpuscular HGB CONC 30.6 g/dL (32.0-36.0); Mean Corpuscular Hemoglobin 23.4 pg (27.0-31.0); Mean Corpuscular Volume 76.4 fL (78.0-98.0); Mean Platelet Volume 7.2 fL (7.4-10.4); Platelet Count 191 thou/uL (130-400); RBC Distribution Width 13.1 % (11.5-14.5); Red Blood Cell (RBC) Count 5.31 mill/uL (4.70-6.10); White Blood Cell (WBC) Count 4.9 thou/uL (4.8-10.8)
[2020-03-15 23:28] LABS: Hypochromia SLIGHT = 6-15 cells (100X) (0-5/hpf); MDiff Complete? YES; Microcytosis SLIGHT = 6-15 cells (100X) (0-5/hpf); Platelet Morphology Comment Appears Adequate; Schistocytes SLIGHT = 2-5 cells (100X) (0-1/hpf); Target Cells SLIGHT = 2-5 cells (100X) (0-1/hpf)
[2020-03-15 23:37] LABS: ALT (SGPT) 52 U/L (8-55); AST (SGOT) 52 U/L (5-34); Albumin 3.6 g/dL (3.5-5.0); Alkaline Phosphatase 78 U/L (40-110); Anion Gap 16 mmol/L (10-20); BUN (Urea Nitrogen) 12 mg/dL (8.4-25.7); Bilirubin, Total 0.4 mg/dL (0.2-1.2); Calc. Creatinine Clearance 0 mL/min (70-130); Calcium 8.7 mg/dL (7.8-10.44); Carbon Dioxide 27 mmol/L (22-29); Chloride 104 mmol/L (98-107); Estimated GFR-MDRD 81; Globulin 2.9 g/dL (2.4-3.5); Glucose 75 mg/dL (70-105); Lipase 89 U/L (8-78); Potassium 3.5 mmol/L (3.5-5.1); Protein, Total 6.5 g/dL (6.0-8.3); Sodium 143 mmol/L (136-145)
[2020-03-15] MEDS ORDERED: Ketorolac Tromethamine 30 MG/ML VIAL ONE (23:41)
--- NOTE | 2020-03-15 23:47 | CT ---
CT Abdomen Pelvis WO Con History: Abdominal pain Comparison: CT examination February 25, 2020 Findings: Lung bases are clear. Prior cholecystectomy. Nonobstructing 3 mm calculus right superior renal collecting system. Nonobstructing 4 mm calculus lef t inferior renal collecting system. No definite hydroureteronephrosis is appreciated. No definite dilated loops of large or small bowel although evaluation is limited due to lack of intra -abdominal fat has all the intra-abdominal and intrapelvic structures have the same attenuation. No acute osseous abnormality. Relative paucity right lower quadrant bowel gas. Impression: Nonobstructing renal calculi. Subtle lytic focus within the right acetabulum and right L2 lamina, unchanged from September of this year and likely benign.
[2020-03-16] MEDS ORDERED: Morphine 4 MG/ML VIAL ONE (00:17)
[2020-03-16 00:23] LABS: Bilirubin Negative (Negative); Blood, Urine Trace (Negative); Clarity Clear (Clear); Glucose, Urine (Dipstick) Negative (Negative); Ketone, Urine Negative (Negative); Leukocyte Negative (Negative); Nitrite Negative (Negative); Protein, Urine (Dipstick) Negative (Neg-Trace); Specific Gravity, Urine 1.025 (1.005-1.030)
[2020-03-16 00:24] LABS: Bacteria/HPF None Seen HPF (None Seen); Mucous/LPF Rare LPF (<2+); RBC/HPF 0-3 HPF (0-3); Squamous Epithelial None Seen HPF (0-3); WBC/HPF None Seen HPF (0-3)
== END 2020-03-16 06:00 | disposition home or self-care (01) ==
LOC: MADERS 22:28
DX: M54.5 Low back pain (principal); I10 Essential (primary) hypertension; F31.9 Bipolar disorder, unspecified; F20.9 Schizophrenia, unspecified; F41.9 Anxiety disorder, unspecified; F17.210 Nicotine dependence, cigarettes, uncomplicated
CPT/HCPCS: 74176; 80053; 81003; 81015; 83690; 85025; 96374; 96375; J1885; J2270; J2405; J7050

== ENCOUNTER 2020-03-19 11:38 | Emergency (ER) | payer MEDICARE, OTHER ==
--- NOTE | 2020-03-19 12:06 | RAD ---
XR Chest 1 View Portable HISTORY: Weakness COMPARISON: 02/26/2020 FINDINGS: The heart size is normal. The aorta is tortuous. The lungs are well expanded without focal areas of consolidation, pneumothorax or pleural effusions. IMPRESSION: No radiographic evidence of acute cardiopulmonary process.
--- NOTE | 2020-03-19 12:32 | CT ---
CT pelvis noncontrast HISTORY: Sacral pain. FINDINGS: No fractures evident. Subtle 0.9 cm oval lucency in the bone marrow just above the right ac etabulum is stable. No sacral lesions evident. Lack of contrast limits evaluation of the soft tissues. No evidence of presacral mass. Degenerative changes lower lumbar spine and hips. IMPRESSION : No acute abnormalities are demonstrated.
[2020-03-19 12:47] LABS: Anisocytosis SLIGHT = 6-15 cells (100X) (0-5/hpf); Hemoglobin 14.1 g/dL (14.0-18.0); Large Platelets SLIGHT; MDiff Complete? YES; Mean Corpuscular Volume 76.7 fL (78.0-98.0); Mean Platelet Volume 7.3 fL (7.4-10.4); Microcytosis SLIGHT = 6-15 cells (100X) (0-5/hpf); Platelet Count 223 thou/uL (130-400); Platelet Morphology Comment Appears Adequate; RBC Distribution Width 13.1 % (11.5-14.5); Red Blood Cell (RBC) Count 6.15 mill/uL (4.70-6.10); Target Cells SLIGHT = 2-5 cells (100X) (0-1/hpf); White Blood Cell (WBC) Count 4.5 thou/uL (4.8-10.8)
[2020-03-19 12:52] LABS: ALT (SGPT) 61 U/L (8-55); AST (SGOT) 46 U/L (5-34); Albumin 3.7 g/dL (3.5-5.0); Alkaline Phosphatase 91 U/L (40-110); Anion Gap 13 mmol/L (10-20); BUN (Urea Nitrogen) 8 mg/dL (8.4-25.7); Bilirubin, Total 0.4 mg/dL (0.2-1.2); Calc. Creatinine Clearance 0 mL/min (70-130); Calcium 8.9 mg/dL (7.8-10.44); Carbon Dioxide 30 mmol/L (22-29); Chloride 105 mmol/L (98-107); Estimated GFR-MDRD 82; Glucose 78 mg/dL (70-105); Lipase 39 U/L (8-78); Potassium 3.5 mmol/L (3.5-5.1); Protein, Total 6.7 g/dL (6.0-8.3); Sodium 144 mmol/L (136-145)
[2020-03-19 13:01] LABS: Acetaminophen Less than 6.0 mcg/mL (10.0-30.0); Alcohol Less than 10 mg/dL (Less than 10); Salicylate Less than 8.0 mg/dL (15.0-30.0)
[2020-03-19 13:08] LABS: Amphetamine Detected (NotDetected); Benzodiazepine Screen Not Detected (NotDetected); Cocaine Metabolite Screen Not Detected (NotDetected); Methadone Not Detected (NotDetected); Methamphetamine Detected (NotDetected); Opiate Screen Not Detected (NotDetected); Phencyclidine (PCP) Not Detected (NotDetected); THC/Cannabinoid Screen Detected (NotDetected); Tricyclic Screen Not Detected (NotDetected)
[2020-03-19 13:09] LABS: Barbiturates Screen Not Detected (NotDetected); Medtox Control Line Valid? VALID (VALID); Oxycodone Screen Not Detected (NotDetected)
== END 2020-03-19 13:45 | disposition home or self-care (01) ==
LOC: MADERS 11:38
DX: M53.3 Sacrococcygeal disorders, not elsewhere classified (principal); M25.562 Pain in left knee; I10 Essential (primary) hypertension; F31.9 Bipolar disorder, unspecified; F17.210 Nicotine dependence, cigarettes, uncomplicated; Z79.899 Other long term (current) drug therapy
CPT/HCPCS: 36415; 71045; 72192; 80053; 80306; 80307; 83605; 83690; 84443; 84484; 85025; 93005; 94760

== ENCOUNTER 2020-03-31 23:57 | Emergency (ER) | payer MEDICARE, OTHER | END 2020-04-01 01:13 | disposition home or self-care (01) | LOC: MADERS 23:57 | DX: M54.2 Cervicalgia (principal); M25.562 Pain in left knee; M79.672 Pain in left foot; M79.671 Pain in right foot; G89.29 Other chronic pain; I10 Essential (primary) hypertension; F41.9 Anxiety disorder, unspecified; F31.9 Bipolar disorder, unspecified; F25.9 Schizoaffective disorder, unspecified; F17.210 Nicotine dependence, cigarettes, uncomplicated; Z87.442 Personal history of urinary calculi; Z79.891 Long term (current) use of opiate analgesic | CPT/HCPCS: 99283 ==

== ENCOUNTER 2020-04-25 04:40 | Emergency (ER) | payer MEDICARE, OTHER ==
[2020-04-25 05:42] LABS: ALT (SGPT) 62 U/L (8-55); AST (SGOT) 68 U/L (5-34); Acetaminophen Less than 6.0 mcg/mL (10.0-30.0); Albumin 3.9 g/dL (3.5-5.0); Alcohol Less than 10 mg/dL (Less than 10); Alkaline Phosphatase 76 U/L (40-110); Anion Gap 14 mmol/L (10-20); BUN (Urea Nitrogen) 14 mg/dL (8.4-25.7); Bilirubin, Total 0.4 mg/dL (0.2-1.2); Calc. Creatinine Clearance 0 mL/min (70-130); Calcium 9.3 mg/dL (7.8-10.44); Carbon Dioxide 26 mmol/L (22-29); Chloride 104 mmol/L (98-107); Estimated GFR-MDRD 90; Globulin 3.1 g/dL (2.4-3.5); Glucose 119 mg/dL (70-105); Potassium 3.4 mmol/L (3.5-5.1); Sodium 141 mmol/L (136-145)
[2020-04-25] MEDS ORDERED: Haloperidol Lactate 5 MG/ML VIAL ONE (06:29)
[2020-04-25 07:21] LABS: Bilirubin Negative (Negative); Blood, Urine Large (Negative); Clarity Clear (Clear); Glucose, Urine (Dipstick) Negative (Negative); Ketone, Urine Negative (Negative); Leukocyte Negative (Negative); Nitrite Negative (Negative); Protein, Urine (Dipstick) Negative (Neg-Trace); pH, Urine 5.5 (5.0-9.0)
[2020-04-25 07:39] LABS: %Lymphocytes 44.1 % (21.0-51.0); %Monocytes 8.1 % (0.0-10.0); %Neutrophils 43.8 % (42.0-75.0); Hemoglobin 12.7 g/dL (14.0-18.0); Mean Corpuscular HGB CONC 29.9 g/dL (32.0-36.0); Mean Corpuscular Hemoglobin 23.4 pg (27.0-31.0); Mean Corpuscular Volume 78.2 fL (78.0-98.0); Mean Platelet Volume 6.9 fL (7.4-10.4); Platelet Count 204 thou/uL (130-400); RBC Distribution Width 13.1 % (11.5-14.5); Red Blood Cell (RBC) Count 5.33 mill/uL (4.70-6.10); White Blood Cell (WBC) Count 4.8 thou/uL (4.8-10.8)
[2020-04-25 07:41] LABS: Anisocytosis MODERATE=16-30 cells (100X) (0-5/hpf); Eosinophils 2 % (0-10); Hypochromia MODERATE=16-30 cells (100X) (0-5/hpf); Lymphocytes 40 % (21-51); MDiff Complete? YES; Monocytes 10 % (0-10); Neutrophil 40 % (42-75); Platelet Morphology Comment Appears Adequate; Poikilocytosis SLIGHT = 6-15 cells (100X) (0-5/hpf); Reactive Lymphocytes 9 % (0-10); Reflex for Review?? NO
[2020-04-25 07:43] LABS: Salicylate Less than 8.0 mg/dL (15.0-30.0)
[2020-04-25 07:45] LABS: Amphetamine Detected (NotDetected); Barbiturates Screen Not Detected (NotDetected); Benzodiazepine Screen Not Detected (NotDetected); Cocaine Metabolite Screen Not Detected (NotDetected); Medtox Control Line Valid? VALID (VALID); Methadone Not Detected (NotDetected); Methamphetamine Detected (NotDetected); Opiate Screen Not Detected (NotDetected); Oxycodone Screen Not Detected (NotDetected); Phencyclidine (PCP) Not Detected (NotDetected); THC/Cannabinoid Screen Not Detected (NotDetected); Tricyclic Screen Not Detected (NotDetected)
[2020-04-25 07:46] LABS: Specific Gravity, Urine 1.022 (1.002-1.036)
[2020-04-25 07:47] LABS: Bacteria/HPF Rare-Few HPF (None Seen); RBC/HPF 21-50 HPF (0-3); Squamous Epithelial 0-3 HPF (0-3); WBC/HPF 0-3 HPF (0-3)
[2020-04-25] MEDS ORDERED: Ibuprofen 400 MG TAB ONE (11:05)
[2020-04-25] MEDS ORDERED: Acetaminophen 500 MG TAB ONE (11:05)
== END 2020-04-25 13:05 | disposition home or self-care (01) ==
LOC: MADERS 04:40
DX: F15.10 Other stimulant abuse, uncomplicated (principal); R60.0 Localized edema; I10 Essential (primary) hypertension; F31.9 Bipolar disorder, unspecified; F20.9 Schizophrenia, unspecified; F17.210 Nicotine dependence, cigarettes, uncomplicated; Z87.442 Personal history of urinary calculi
CPT/HCPCS: 80053; 80306; 80307; 81003; 81015; 85025; 96374; J1630

== ENCOUNTER 2020-06-06 02:32 | Emergency (ER) | payer MEDICARE, OTHER ==
[2020-06-06 03:54] LABS: Amphetamine Detected (NotDetected); Benzodiazepine Screen Not Detected (NotDetected); Cocaine Metabolite Screen Not Detected (NotDetected); Methadone Not Detected (NotDetected); Methamphetamine Detected (NotDetected); Opiate Screen Not Detected (NotDetected); Phencyclidine (PCP) Not Detected (NotDetected); THC/Cannabinoid Screen Detected (NotDetected); Tricyclic Screen Not Detected (NotDetected)
[2020-06-06 03:55] LABS: Barbiturates Screen Not Detected (NotDetected); Medtox Control Line Valid? VALID (VALID); Oxycodone Screen Not Detected (NotDetected)
[2020-06-06 03:56] LABS: Clarity Clear (Clear)
[2020-06-06 03:59] LABS: Leukocyte Negative (Negative); Nitrite Negative (Negative); Protein, Urine (Dipstick) 30 mg/dL (Neg-Trace); Specific Gravity, Urine 1.028 (1.002-1.036); pH, Urine 5.5 (5.0-9.0)
[2020-06-06 04:00] LABS: Bilirubin Negative (Negative); Blood, Urine Moderate (Negative); Glucose, Urine (Dipstick) Negative (Negative); Ketone, Urine Negative (Negative); Urobilinogen 0.2 mg/dL (Less than 2)
[2020-06-06 04:01] LABS: Squamous Epithelial 0-3 HPF (0-3); WBC/HPF 0-3 HPF (0-3)
[2020-06-06 04:02] LABS: Bacteria/HPF Rare-Few HPF (None Seen)
[2020-06-06] MEDS ORDERED: Haloperidol Lactate 5 MG/ML VIAL ONE (04:04)
[2020-06-06 04:06] LABS: Acetaminophen Less than 6.0 mcg/mL (10.0-30.0); Alcohol Less than 10 mg/dL (Less than 10); Salicylate Less than 8.0 mg/dL (15.0-30.0)
[2020-06-06 04:09] LABS: ALT (SGPT) 54 U/L (8-55); AST (SGOT) 63 U/L (5-34); Albumin 4.3 g/dL (3.5-5.0); Alcohol Less than 10 mg/dL (Less than 10); Alkaline Phosphatase 88 U/L (40-110); Anion Gap 18 mmol/L (10-20); BUN (Urea Nitrogen) 24 mg/dL (8.4-25.7); Bilirubin, Total 0.7 mg/dL (0.2-1.2); Calc. Creatinine Clearance 0 mL/min (70-130); Calcium 9.9 mg/dL (7.8-10.44); Carbon Dioxide 26 mmol/L (22-29); Chloride 101 mmol/L (98-107); Globulin 4.6 g/dL (2.4-3.5); Glucose 85 mg/dL (70-105); Potassium 3.7 mmol/L (3.5-5.1); Protein, Total 8.9 g/dL (6.0-8.3); Sodium 141 mmol/L (136-145)
[2020-06-06 04:23] LABS: Hemoglobin 13.9 g/dL (14.0-18.0); Red Blood Cell (RBC) Count 5.95 mill/uL (4.70-6.10); White Blood Cell (WBC) Count 8.4 thou/uL (4.8-10.8)
[2020-06-06 04:24] LABS: Mean Corpuscular HGB CONC 30.2 g/dL (32.0-36.0); Mean Corpuscular Hemoglobin 23.4 pg (27.0-31.0); Mean Corpuscular Volume 77.5 fL (78.0-98.0); Mean Platelet Volume 6.5 fL (7.4-10.4); Platelet Count 386 thou/uL (130-400)
[2020-06-06 04:26] LABS: Band 6 % (5-11); Eosinophils 2 % (0-10); Lymphocytes 27 % (21-51); Monocytes 4 % (0-10); Reactive Lymphocytes 3 % (0-10)
[2020-06-06 04:29] LABS: Anisocytosis MODERATE=16-30 cells (100X) (0-5/hpf); Delete Auto Diff?? YES; Poikilocytosis MODERATE=16-30 cells (100X) (0-5/hpf)
[2020-06-06 04:30] LABS: Ovalocytes SLIGHT = 2-5 cells (100X) (0-1/hpf); Target Cells MODERATE= 6-15 cells (100X) (0-1/hpf)
[2020-06-06 04:31] LABS: Large Platelets SLIGHT; Toxic Granulation SLIGHT; Vacuoles SLIGHT
[2020-06-06 04:35] LABS: Neutrophil 58 % (42-75)
== END 2020-06-06 09:30 | disposition home or self-care (01) ==
LOC: MADERS 02:32
DX: F15.10 Other stimulant abuse, uncomplicated (principal); F12.10 Cannabis abuse, uncomplicated; F20.9 Schizophrenia, unspecified; F10.10 Alcohol abuse, uncomplicated; Y90.0 Blood alcohol level of less than 20 mg/100 ml; R47.81 Slurred speech; Z91.19 Patient's noncompliance with other medical treatment and regimen; I10 Essential (primary) hypertension; F17.210 Nicotine dependence, cigarettes, uncomplicated; Z87.442 Personal history of urinary calculi; Z79.899 Other long term (current) drug therapy
CPT/HCPCS: 80053; 80306; 80307; 81003; 81015; 85025; 96372; 99285; J1630

== ENCOUNTER 2020-06-24 05:25 | Emergency (ER) | payer MEDICARE, OTHER ==
[2020-06-24 07:01] LABS: Amphetamine Detected (NotDetected); Barbiturates Screen Not Detected (NotDetected); Benzodiazepine Screen Not Detected (NotDetected); Cocaine Metabolite Screen Not Detected (NotDetected); Medtox Control Line Valid? VALID (VALID); Methadone Not Detected (NotDetected); Methamphetamine Detected (NotDetected); Opiate Screen Not Detected (NotDetected); Oxycodone Screen Not Detected (NotDetected); Phencyclidine (PCP) Not Detected (NotDetected); THC/Cannabinoid Screen Not Detected (NotDetected); Tricyclic Screen Not Detected (NotDetected)
[2020-06-24 07:12] LABS: Hemoglobin 12.1 g/dL (14.0-18.0); Mean Corpuscular HGB CONC 30.7 g/dL (32.0-36.0); Mean Corpuscular Hemoglobin 23.5 pg (27.0-31.0); Mean Corpuscular Volume 76.4 fL (78.0-98.0); Platelet Count 173 thou/uL (130-400); RBC Distribution Width 13.8 % (11.5-14.5); Red Blood Cell (RBC) Count 5.15 mill/uL (4.70-6.10); White Blood Cell (WBC) Count 4.6 thou/uL (4.8-10.8)
[2020-06-24 07:13] LABS: #Basophils 0.1 thou/uL (0.0-0.2); #Eosinphils 0.1 thou/uL (0.0-0.7); #Lymphocytes 2.4 thou/uL (1.20-3.40); #Monocytes 0.3 thou/uL (0.11-0.59); #Neutrophils 1.6 thou/uL (1.40-6.50); %Basophils 1.6 % (0.0-1.0); %Eosinophils 2.1 % (0.0-10.0); %Lymphocytes 53.4 % (21.0-51.0); %Monocytes 7.7 % (0.0-10.0); %Neutrophils 35.3 % (42.0-75.0); Mean Platelet Volume 7.3 fL (7.4-10.4)
[2020-06-24 07:18] LABS: ALT (SGPT) 41 U/L (8-55); AST (SGOT) 48 U/L (5-34); Albumin 3.7 g/dL (3.5-5.0); Alkaline Phosphatase 67 U/L (40-110); Anion Gap 13 mmol/L (10-20); BUN (Urea Nitrogen) 18 mg/dL (8.4-25.7); Bilirubin, Total 0.4 mg/dL (0.2-1.2); Calc. Creatinine Clearance 0 mL/min (70-130); Calcium 8.9 mg/dL (7.8-10.44); Carbon Dioxide 28 mmol/L (22-29); Chloride 104 mmol/L (98-107); Glucose 79 mg/dL (70-105); Protein, Total 6.7 g/dL (6.0-8.3); Sodium 141 mmol/L (136-145)
[2020-06-24 07:31] LABS: Acetaminophen Less than 6.0 mcg/mL (10.0-30.0); Alcohol Less than 10 mg/dL (Less than 10); Salicylate Less than 8.0 mg/dL (15.0-30.0)
== END 2020-06-24 11:00 | disposition home or self-care (01) ==
LOC: MADERS 05:25
DX: F15.180 Other stimulant abuse with stimulant-induced anxiety disorder (principal); F15.151 Other stimulant abuse with stimulant-induced psychotic disorder with hallucinations; I10 Essential (primary) hypertension; F17.210 Nicotine dependence, cigarettes, uncomplicated; Z79.899 Other long term (current) drug therapy
CPT/HCPCS: 36415; 80053; 80306; 80307; 84443; 85025; 93005

== ENCOUNTER 2020-09-14 01:18 | Emergency (ER) | payer MEDICARE, MEDICAID ==
[2020-09-14] MEDS ORDERED: Sodium Chloride 0.9% 1,000 ML ONE (02:07)
[2020-09-14 02:42] LABS: Hemoglobin 12.7 g/dL (14.0-18.0); Mean Corpuscular HGB CONC 30.4 g/dL (32.0-36.0); Mean Corpuscular Hemoglobin 24.4 pg (27.0-31.0); Mean Corpuscular Volume 80.4 fL (78.0-98.0); Platelet Count 210 thou/uL (130-400); RBC Distribution Width 15.1 % (11.5-14.5); White Blood Cell (WBC) Count 6.2 thou/uL (4.8-10.8)
[2020-09-14 02:53] LABS: ALT (SGPT) 35 U/L (8-55); AST (SGOT) 64 U/L (5-34); Albumin 3.8 g/dL (3.5-5.0); Alkaline Phosphatase 89 U/L (40-110); Anion Gap 16 mmol/L (10-20); BUN (Urea Nitrogen) 24 mg/dL (8.4-25.7); Bilirubin, Total 0.5 mg/dL (0.2-1.2); CK (CPK) 689 U/L (30-200); Calc. Creatinine Clearance 0 mL/min (70-130); Calcium 9.1 mg/dL (7.8-10.44); Carbon Dioxide 25 mmol/L (22-29); Chloride 105 mmol/L (98-107); Glucose 70 mg/dL (70-105); Potassium 3.3 mmol/L (3.5-5.1); Protein, Total 6.8 g/dL (6.0-8.3); Sodium 143 mmol/L (136-145)
[2020-09-14 03:01] LABS: Eosinophils 5 % (0-10); Lymphocytes 40 % (21-51); MDiff Complete? YES; Monocytes 9 % (0-10); Neutrophil 45 % (42-75); Platelet Morphology Comment Appears Adequate; RBC Morphology Normal
[2020-09-14 06:14] LABS: Bilirubin Negative (Negative); Blood, Urine Negative (Negative); Clarity Clear (Clear); Glucose, Urine (Dipstick) Negative (Negative); Ketone, Urine 15 mg/dL (Negative); Leukocyte Negative (Negative); Nitrite Negative (Negative); Protein, Urine (Dipstick) Negative (Neg-Trace); Urobilinogen 0.2 mg/dL (Less than 2); pH, Urine 5.5 (5.0-9.0)
[2020-09-14 06:16] LABS: Specific Gravity, Urine 1.034 (1.002-1.036)
[2020-09-14] MEDS ORDERED: Sodium Chloride 0.9% 500 ML ONE (06:20)
[2020-09-14 06:22] LABS: Amphetamine Not Detected (NotDetected); Barbiturates Screen Not Detected (NotDetected); Benzodiazepine Screen Not Detected (NotDetected); Cocaine Metabolite Screen Not Detected (NotDetected); Medtox Control Line Valid? VALID (VALID); Methadone Not Detected (NotDetected); Methamphetamine Detected (NotDetected); Opiate Screen Not Detected (NotDetected); Oxycodone Screen Not Detected (NotDetected); Phencyclidine (PCP) Not Detected (NotDetected); THC/Cannabinoid Screen Not Detected (NotDetected); Tricyclic Screen Not Detected (NotDetected)
== END 2020-09-14 07:23 | disposition home or self-care (01) ==
LOC: MADERS 01:18
DX: M62.82 Rhabdomyolysis (principal); E86.0 Dehydration; F15.10 Other stimulant abuse, uncomplicated; I10 Essential (primary) hypertension; F17.210 Nicotine dependence, cigarettes, uncomplicated; F17.290 Nicotine dependence, other tobacco product, uncomplicated
CPT/HCPCS: 72100; 80053; 80306; 81003; 82550; 85025; J7030; J7050

== ENCOUNTER 2020-10-06 22:58 | Emergency (ER) | payer MEDICARE, OTHER ==
[2020-10-06] MEDS ORDERED: Acetaminophen 325 MG TAB ONE (23:38)
[2020-10-06] MEDS ORDERED: Bacitracin 1 PK ONE (23:38)
== END 2020-10-06 23:55 | disposition home or self-care (01) ==
LOC: MADERS 22:58
DX: L20.9 Atopic dermatitis, unspecified (principal); F15.10 Other stimulant abuse, uncomplicated; S00.419A Abrasion of unspecified ear, initial encounter; I10 Essential (primary) hypertension; F17.210 Nicotine dependence, cigarettes, uncomplicated; Z87.442 Personal history of urinary calculi; X58.XXXA Exposure to other specified factors, initial encounter
CPT/HCPCS: 99284

== ENCOUNTER 2020-10-11 19:16 | Emergency (ER) | payer OTHER ==
[2020-10-11] MEDS ORDERED: Bacitracin 1 PK ONE (20:03)
== END 2020-10-11 20:18 | disposition home or self-care (01) ==
LOC: MADERS 19:16
DX: S30.810A Abrasion of lower back and pelvis, initial encounter (principal); I10 Essential (primary) hypertension; F17.210 Nicotine dependence, cigarettes, uncomplicated; Z87.442 Personal history of urinary calculi; X58.XXXA Exposure to other specified factors, initial encounter
CPT/HCPCS: 99283

== ENCOUNTER 2021-03-31 04:35 | Emergency (ER) | payer MEDICARE, OTHER ==
[2021-03-31 05:21] LABS: BUN (Urea Nitrogen) 16 mg/dL (8.4-25.7); Calc. Creatinine Clearance 0 mL/min (70-130); Calcium 9.4 mg/dL (7.8-10.44); Carbon Dioxide 25 mmol/L (22-29); Chloride 109 mmol/L (98-107); Glucose 131 mg/dL (70-105); Potassium 3.1 mmol/L (3.5-5.1); Sodium 142 mmol/L (136-145)
[2021-03-31 05:22] LABS: ALT (SGPT) 36 U/L (8-55); AST (SGOT) 48 U/L (5-34); Albumin 3.5 g/dL (3.5-5.0); Alkaline Phosphatase 74 U/L (40-110); Bilirubin, Total 0.4 mg/dL (0.2-1.2); Globulin 2.9 g/dL (2.4-3.5); Protein, Total 6.4 g/dL (6.0-8.3)
[2021-03-31 05:23] LABS: Anion Gap 11 mmol/L (10-20)
[2021-03-31 05:28] LABS: Hemoglobin 12.3 g/dL (14.0-18.0); Mean Corpuscular HGB CONC 30.4 g/dL (32.0-36.0); Mean Corpuscular Hemoglobin 23.9 pg (27.0-31.0); Mean Corpuscular Volume 78.6 fL (78.0-98.0); Platelet Count 165 thou/uL (130-400); RBC Distribution Width 13.7 % (11.5-14.5); Red Blood Cell (RBC) Count 5.16 mill/uL (4.70-6.10); White Blood Cell (WBC) Count 4.1 thou/uL (4.8-10.8)
[2021-03-31 05:30] LABS: MDiff Complete? YES
[2021-03-31 05:35] LABS: Eosinophils 1 % (0-10); Lymphocytes 57 % (21-51); Monocytes 2 % (0-10); Neutrophil 40 % (42-75); Platelet Morphology Comment Appears Adequate; RBC Morphology Normal
[2021-03-31 05:36] LABS: Mean Platelet Volume 8.2 fL (7.4-10.4)
[2021-03-31 05:38] LABS: Reactive Lymphocytes 2 % (0-10)
[2021-03-31 05:53] LABS: Acetaminophen Less than 6.0 mcg/mL (10.0-30.0); Alcohol Less than 10 mg/dL (Less than 10); Salicylate Less than 8.0 mg/dL (15.0-30.0)
[2021-03-31 06:00] LABS: Bilirubin Negative (Negative); Blood, Urine Moderate (Negative); Clarity Clear (Clear); Glucose, Urine (Dipstick) Negative (Negative); Ketone, Urine Negative (Negative); Leukocyte Negative (Negative); Nitrite Negative (Negative); Protein, Urine (Dipstick) Trace mg/dL (Neg-Trace); pH, Urine 5.5 (5.0-9.0)
[2021-03-31 06:10] LABS: Specific Gravity, Urine 1.025 (1.002-1.036)
[2021-03-31 06:11] LABS: Bacteria/HPF Rare-Few HPF (None Seen); Cocaine Metabolite Screen Not Detected (NotDetected); Methamphetamine Detected (NotDetected); Phencyclidine (PCP) Not Detected (NotDetected); RBC/HPF 21-50 HPF (0-3); Squamous Epithelial 0-3 HPF (0-3); THC/Cannabinoid Screen Not Detected (NotDetected); WBC/HPF 0-3 HPF (0-3)
[2021-03-31 06:12] LABS: Amphetamine Detected (NotDetected); Barbiturates Screen Not Detected (NotDetected); Benzodiazepine Screen Not Detected (NotDetected); Methadone Not Detected (NotDetected); Opiate Screen Not Detected (NotDetected); Oxycodone Screen Not Detected (NotDetected); Tricyclic Screen Not Detected (NotDetected)
[2021-03-31 06:13] LABS: Medtox Control Line Valid? VALID (VALID)
== END 2021-03-31 08:40 | disposition home or self-care (01) ==
LOC: MADERS 04:35
DX: F15.20 Other stimulant dependence, uncomplicated (principal); I10 Essential (primary) hypertension; Z87.442 Personal history of urinary calculi
CPT/HCPCS: 36415; 80053; 80306; 80307; 81003; 81015; 82550; 85025; 93005

== ENCOUNTER 2021-05-10 02:52 | Emergency (ER) | payer MEDICARE, OTHER ==
[2021-05-10] MEDS ORDERED: Acetaminophen 325 MG TAB ONE (03:36)
== END 2021-05-10 04:01 | disposition home or self-care (01) ==
LOC: MADERS 02:52
DX: M79.672 Pain in left foot (principal); M79.671 Pain in right foot; F19.10 Other psychoactive substance abuse, uncomplicated; I10 Essential (primary) hypertension; Z87.442 Personal history of urinary calculi
CPT/HCPCS: 99283

== ENCOUNTER 2021-06-20 13:46 | Emergency (ER) | payer MEDICARE, OTHER ==
[2021-06-20] MEDS ORDERED: Iopamidol 370 76% 100 ML VIAL IV ONE (13:47)
[2021-06-20 16:01] LABS: ALT (SGPT) 87 U/L (8-55); AST (SGOT) 112 U/L (5-34); Albumin 3.8 g/dL (3.5-5.0); Alkaline Phosphatase 79 U/L (40-110); Anion Gap 14 mmol/L (10-20); BUN (Urea Nitrogen) 13 mg/dL (8.4-25.7); Bilirubin, Total 0.6 mg/dL (0.2-1.2); Calc. Creatinine Clearance 0 mL/min (70-130); Calcium 9.8 mg/dL (7.8-10.44); Carbon Dioxide 25 mmol/L (22-29); Chloride 104 mmol/L (98-107); Globulin 3.6 g/dL (2.4-3.5); Glucose 69 mg/dL (70-105); Lipase 30 U/L (8-78); Magnesium 1.9 mg/dL (1.6-2.6); Potassium 3.9 mmol/L (3.5-5.1); Protein, Total 7.4 g/dL (6.0-8.3); Sodium 139 mmol/L (136-145)
[2021-06-20 16:13] LABS: #Lymphocytes 1.8 thou/uL (1.20-3.40); #Monocytes 0.1 thou/uL (0.11-0.59); #Neutrophils 2.5 thou/uL (1.40-6.50); %Basophils 1.1 % (0.0-1.0); %Eosinophils 0.6 % (0.0-10.0); %Lymphocytes 39.8 % (21.0-51.0); %Monocytes 3.1 % (0.0-10.0); %Neutrophils 55.3 % (42.0-75.0); Hemoglobin 15.4 g/dL (14.0-18.0); Mean Corpuscular Hemoglobin 23.3 pg (27.0-31.0); Mean Corpuscular Volume 77.6 fL (78.0-98.0); Mean Platelet Volume 6.6 fL (7.4-10.4); Platelet Count 207 thou/uL (130-400); RBC Distribution Width 13.9 % (11.5-14.5); White Blood Cell (WBC) Count 4.6 thou/uL (4.8-10.8)
[2021-06-20 16:46] LABS: Bilirubin Negative (Negative); Blood, Urine Negative (Negative); Clarity Clear (Clear); Glucose, Urine (Dipstick) Negative (Negative); Ketone, Urine Negative (Negative); Leukocyte Negative (Negative); Nitrite Negative (Negative); Protein, Urine (Dipstick) Negative (Neg-Trace)
== END 2021-06-20 18:20 | disposition home or self-care (01) ==
LOC: MADERS 13:46
DX: R07.9 Chest pain, unspecified (principal); R10.84 Generalized abdominal pain; R00.1 Bradycardia, unspecified; N20.0 Calculus of kidney; D72.819 Decreased white blood cell count, unspecified; I10 Essential (primary) hypertension; E11.9 Type 2 diabetes mellitus without complications
CPT/HCPCS: 36415; 71045; 74177; 80053; 81003; 83605; 83690; 83735; 84484; 85025; 94760; Q9967

== ENCOUNTER 2021-09-12 00:24 | Emergency (ER) | payer MEDICARE, OTHER | END 2021-09-12 01:09 | disposition home or self-care (01) | LOC: MADERS 00:24 | DX: B35.3 Tinea pedis (principal); I10 Essential (primary) hypertension; Z87.442 Personal history of urinary calculi | CPT/HCPCS: 99283 ==

== ENCOUNTER 2023-04-05 10:33 | Emergency (ER) | payer OTHER, MEDICAID ==
[2023-04-05] MEDS ORDERED: Ibuprofen 600 MG TAB ONE (11:49)
[2023-04-05] MEDS ORDERED: Acetaminophen 325 MG TAB ONE (11:49)
[2023-04-06 11:13] LABS: Syphilis Antibody Nonreactive (Nonreactive); Syphilis Antibody Index 0.12 S/CO (<1.00 Non-Reactive)
[2023-04-08 15:37] LABS: HSV 1 - DNA Negative (Negative); HSV 2 - DNA Negative (Negative)
== END 2023-04-05 12:38 | disposition home or self-care (01) ==
LOC: MADERS 10:33
DX: S10.91XA Abrasion of unspecified part of neck, initial encounter (principal); R22.40 Localized swelling, mass and lump, unspecified lower limb; I10 Essential (primary) hypertension; W19.XXXA Unspecified fall, initial encounter
CPT/HCPCS: 36415; 86780; 87529; 99283

== ENCOUNTER 2024-06-04 10:44 | Emergency (ER) | payer MEDICARE, OTHER ==
[2024-06-04 11:26] LABS: Bilirubin Small (Negative); Blood, Urine Negative (Negative); Clarity Clear (Clear); Glucose, Urine (Dipstick) Negative (Negative); Ketone, Urine 15 mg/dL (Negative); Leukocyte Negative (Negative); Nitrite Negative (Negative); Protein, Urine (Dipstick) Negative (Neg-Trace); Specific Gravity, Urine 1.025 (1.005-1.030)
[2024-06-04 11:33] LABS: Amphetamine Detected (NotDetected); Barbiturates Screen Not Detected (NotDetected); Benzodiazepine Screen Not Detected (NotDetected); Cocaine Metabolite Screen Detected (NotDetected); Methadone Not Detected (NotDetected); Methamphetamine Detected (NotDetected); Opiate Screen Not Detected (NotDetected); Oxycodone Screen Not Detected (NotDetected); Phencyclidine (PCP) Not Detected (NotDetected); THC/Cannabinoid Screen Detected (NotDetected); Tricyclic Screen Not Detected (NotDetected)
[2024-06-04 11:43] LABS: Bacteria/HPF Rare-Few HPF (None Seen); CAUTI Indications for Culture Pelvic or flank pain; RBC/HPF 0-3 HPF (0-3); Squamous Epithelial 0-3 HPF (0-3); WBC/HPF 0-3 HPF (0-3)
[2024-06-04 11:45] LABS: Urine Culture Reflex No No
[2024-06-04 11:51] LABS: Hematocrit 50.3 % (42.0-52.0); Hemoglobin 14.8 g/dL (14.0-18.0); Mean Corpuscular HGB CONC 29.2 g/dL (32.0-36.0); Mean Corpuscular Hemoglobin 22.8 pg (27.0-31.0); Mean Corpuscular Volume 78.1 fl (78.0-98.0); Mean Platelet Volume 9.5 fL (7.4-10.4); Platelet Count 200 10x3/uL (130-400); RBC Distribution Width 13.8 % (11.5-14.5); Red Blood Cell (RBC) Count 6.49 mill/uL (4.70-6.10)
[2024-06-04 11:57] LABS: Manual Diff?? YES
[2024-06-04 11:58] LABS: Band 1 % (5-11); Eosinophils 2 % (0-10); Lymphocytes 44 % (21-51); MDiff Complete? YES; Neutrophil 49 % (42-75)
[2024-06-04 11:59] LABS: Anisocytosis SLIGHT = 6-15 cells (100X) (0-5/hpf); Monocytes 4 % (0-10); Platelet Adequacy Comment Appears Adequate
[2024-06-04 12:13] LABS: ALT (SGPT) 85 U/L (8-55); AST (SGOT) 135 U/L (5-34); Albumin 3.9 g/dL (3.5-5.0); Alkaline Phosphatase 81 U/L (40-110); Anion Gap 11 mmol/L (10-20); BUN (Urea Nitrogen) 21 mg/dL (8.4-25.7); Bilirubin, Total 0.7 mg/dL (0.2-1.2); CK (CPK) 253 U/L (30-200); Calc. Creatinine Clearance 0 mL/min (70-130); Calcium 9.4 mg/dL (7.8-10.44); Carbon Dioxide 28 mmol/L (22-29); Chloride 104 mmol/L (98-107); Estimated GFR 60; Globulin 3.8 g/dL (2.4-3.5); Glucose 112 mg/dL (70-105); Potassium 3.9 mmol/L (3.5-5.1); Protein, Total 7.7 g/dL (6.0-8.3); Sodium 139 mmol/L (136-145)
[2024-06-04] MEDS ORDERED: Ketorolac Tromethamine 30 MG (1 mL) VIAL ONE (12:59)
== END 2024-06-04 13:33 | disposition home or self-care (01) ==
LOC: MADERS 10:44
DX: M79.10 Myalgia, unspecified site (principal); I10 Essential (primary) hypertension; F17.210 Nicotine dependence, cigarettes, uncomplicated
CPT/HCPCS: 36415; 80053; 80306; 81001; 82550; 85025; 96372; 99283; J1885

== ENCOUNTER 2024-07-06 00:58 | Emergency (ER) | payer MEDICARE, OTHER ==
[2024-07-06] MEDS ORDERED: Lidocaine 4% Patch ONE (01:25)
[2024-07-06] MEDS ORDERED: Acetaminophen 500 MG TAB ONE (01:25)
== END 2024-07-06 01:38 | disposition home or self-care (01) ==
LOC: MADERS 00:58
DX: M54.2 Cervicalgia (principal); F17.210 Nicotine dependence, cigarettes, uncomplicated; I10 Essential (primary) hypertension
CPT/HCPCS: 99283

== ENCOUNTER 2025-05-08 09:33 | Emergency (ER) | payer OTHER, MEDICAID ==
[2025-05-08 10:28] LABS: Glucose, Urine (Dipstick) Negative (Negative); Leukocyte Negative (Negative); Protein, Urine (Dipstick) Negative (Neg-Trace); Specific Gravity, Urine 1.020 (1.005-1.030)
[2025-05-08 10:38] LABS: Bacteria/HPF Rare-Few HPF (None Seen); CAUTI Indications for Culture Dysuria,urgency,freq; RBC/HPF 0-3 HPF (0-3); WBC/HPF 0-3 HPF (0-3)
[2025-05-08 10:39] LABS: Urine Culture Reflex No No
== END 2025-05-08 11:20 | disposition home or self-care (01) ==
LOC: MADERS 09:33
DX: R33.9 Retention of urine, unspecified (principal); M54.31 Sciatica, right side; I10 Essential (primary) hypertension; F17.210 Nicotine dependence, cigarettes, uncomplicated
CPT/HCPCS: 51702; 81001; 99283

== ENCOUNTER 2025-05-11 00:15 | Emergency (ER) | payer OTHER, MEDICAID ==
[2025-05-11] MEDS ORDERED: Acetaminophen 325 MG TAB ONE (02:28)
== END 2025-05-11 03:23 | disposition home or self-care (01) ==
LOC: MADERS 00:15
DX: Z46.6 Encounter for fitting and adjustment of urinary device (principal); M25.511 Pain in right shoulder; I10 Essential (primary) hypertension; F17.210 Nicotine dependence, cigarettes, uncomplicated
CPT/HCPCS: 99283